=== PATIENT | male | born 1960 | race Caucasian/White ===

== ENCOUNTER 2021-03-06 22:36 | Observation (INO) | payer OTHER ==
[~2021-03-06] VITALS: Ht 180.3 cm; Wt 95.6 kg
[~2021-03-06 22:36] MED LIST: ADVIL100 M2 PO; AMLODIPINE BESY10 MG PO; ASPIRIN81 M2 PO; ATIVAN1 MG PO; ATORVASTATIN CA40 MG PO; BACTRIM; BACTRIM DS TAB1 EACH PO; CARVEDILOL25 MG PO; CEPHALEXIN 500500 M3 PO; EPIPEN0.3 MG/0.3 IM; HYDROCODONE-AP1 EAC6 PO; HYDROCODONE-APA1 TA1 PO; LEVITRA20 MG; MEDROLDOSEPACK PO; NORCO 5-325 TA1 EACH PO; PLAVIX 75 MG TA75 M1 PO; PREDNISONE 20 M20 M1 PO; VICODIN 5-3001 EACH PO; XANAX 0.25 MG0.25 MG PO
[2021-03-06 22:47] VITALS: BP 135/87
[2021-03-06 23:50] LABS: ABSOLUTE BASOPHILS 0.1 thou/uL (0.0-0.2); ABSOLUTE EOSINOPHILS 0.1 thou/uL (0.0-0.7); ABSOLUTE LYMPHOCYTES 2.5 thou/uL (0.8-5.3); ABSOLUTE MONOCYTES 1.5 thou/uL (0.0-1.2); ABSOLUTE NEUTROPHILS 11.3 thou/uL (1.6-8.1); BASOPHILS 0.6 %; EOSINOPHILS 0.9 %; HEMATOCRIT 44.9 % (42.0-52.0); HEMOGLOBIN 15.1 gm/dL (14.0-18.0); LYMPHOCYTES 16.3 %; MCH 30.1 pg (26.0-34.0); MCHC 33.6 g/dL (28.0-37.0); MCV 89.4 fL (80.0-100.0); MONOCYTES 9.9 %; MPV 7.7 fl. (7.2-11.1); NUCLEATED RBCS 0 /100WBC; PLATELET COUNT* 295 thou/uL (150-400); POLYS 72.3 %; RBC 5.02 mil/uL (4.50-6.00); RDW-CV 13.4 % (10.5-14.5); WBC 15.6 thou/uL (4.0-11.0)
[2021-03-06 23:55] LABS: CALCIUM 9.4 mg/dL (8.5-10.1); CREATININE 1.3 mg/dL (0.6-1.3); POTASSIUM 3.8 mmol/L (3.5-5.1)
[2021-03-07 01:50] VITALS: BP 99/59
[2021-03-07 01:53] VITALS: BP 95/67
--- NOTE | 2021-03-07 20:41 | NUR ---
This nurse was notified shortly after 0800 during rounds that the pt was upset and wanted to leave the hospital. This nurse went into the room with Ruel DUGAN to assess the situation. Pt stated that he was "fucking leaving because I was supposed to be here overnight for observation and getting IV antibiotics and they brought me to this room and have not given me anything and just forgot about me." This nurse notified the patient that I would have to look in the computer to see what the plan was and what medications he would be getting this morning. The patient stated that he wanted to talk to the "resident in charge". This nurse said that I would go call the jewel supervisor for him. This nurse went to the desk to check the orders while KAILEE Lipscomb, called the warehouse shipper. In the middle of the conversation, the patient came out by the nurses' station with his arms raised and asked in a aggressive tone if that was the direction to the exit because he was "fucking leaving". We asked the patient to allow us to remove the IV before he left and he stated, "you aren't fucking touching me, I am leaving." At this time the pt began to walk out the doors and KAILEE Lipscomb Amelia, RN, and VARUN Lorenzo followed the pt continually asking to let us remove the IV for safety reasons.
== END 2021-03-07 08:30 | disposition left against medical advice (07) ==
LOC: M.ERS 22:36 → M.TBA-ER 03-07 00:54 → M.ORTHSURG 03-07 02:04
PROVIDERS: Emergency Medicine; ADMIT Family Medicine; ATTEND Family Medicine
DX: L03.116 Cellulitis of left lower limb (principal); Z20.822 Contact with and (suspected) exposure to COVID-19; F41.9 Anxiety disorder, unspecified; F43.10 Post-traumatic stress disorder, unspecified; F17.210 Nicotine dependence, cigarettes, uncomplicated; Z88.5 Allergy status to narcotic agent; Z88.8 Allergy status to other drugs, medicaments and biological substances; Z98.890 Other specified postprocedural states; W57.XXXA Bitten or stung by nonvenomous insect and other nonvenomous arthropods, initial encounter; Y93.89 Activity, other specified; Y92.89 Other specified places as the place of occurrence of the external cause; Y99.8 Other external cause status